=== PATIENT | female | born 1970 | race Caucasian/White ===

== ENCOUNTER → 2017-10-07 | Day surgery (SDC) | payer OTHER ==
[~2017-10-07] VITALS: Ht 170.2 cm; Wt 83.9 kg
[~2017-10-07] MED LIST: ALPRAZOLAM0.25 MG PO; BACTRIM DS 8001 TAB PO; DITROPAN XL10 MG PO; ESCITALOPRAM10 MG PO; LEVAQUIN750 M1 PO; LEVOTHYROXIN0.125 MG PO; LEVOTHYROXINE0.15 MG PO; OXYCODONE-ACET1 EACH PO; PERCOCET 5-3251 EACH PO; PROVERA 10 MG T10 MG PO; PYRIDIUM200 M1 PO; SYNTHROID0.025 MG PO
--- NOTE | 2017-10-09 20:03 | Operative Report ---
Operative/Inv Procedure Report Surgery Date: 10/07/17 Name of Procedure: Abdominal wound exploration, excision of scar and intermediate complexity closure with advancement flap. 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 Given her body habitus the Pfannenstiel incision made a deep crease right in the middle of it was a healing opening about 2 cm long. We injected local anesthetic around this and aimed an elliptical incision around this but we shaped it in the form of a flap based on the superior aspect this was an effort to disrupt the line of this crease on closure. Next with cautery we dissected through the scar and explored looking for sinus tract granulation tissue foreign bodies mesh suture, we found mostly scar it was prominent and thick and we excised it in continuity with the skin edges of this wound. The size of the specimen was about 3 x 3 cm. Next in the middle of the inferior flap more skin was removed so that we could use the advancement flap to close below the level of the crease created by the rest of the previous incision/scar. This was reapproximated in layers using 3-0 Vicryl sutures deep and then a running 4-0 nylon for the skin followed by bacitracin gauze and tape. EBL minimal lap and sponge counts correct wound expectancy contaminated. IV fluids crystalloid complications none patient tolerated the procedure well was extubated and returned to recovery room in satisfactory condition.
== END ==
LOC: STS 02:10
DX: T81.31XA Disruption of external operation (surgical) wound, not elsewhere classified, initial encounter (principal); L91.0 Hypertrophic scar; L72.0 Epidermal cyst; L90.5 Scar conditions and fibrosis of skin
CPT/HCPCS: 81025; J0131; J2250; J3490